=== PATIENT | female | born 1950 | race Caucasian/White ===

== ENCOUNTER 2021-08-31 07:05 | Day surgery (SDC) | payer OTHER ==
[~2021-08-31] VITALS: Ht 165.1 cm; Wt 100.7 kg
[~2021-08-31 07:05] MED LIST: ACET-1158 PO; ASPI1TAB91 PO; ATO40T PO; CETI1TAB12 PO; DOXY-332 PO; FLUT1SPR21 EACHNOSTRI; LEVO100T8 PO; METO25TA93 PO; NITR0.4S29 SL; TOLT1CAP29 PO
[2021-08-31] MEDS ORDERED: LIDOCAINE 2%HCL (LOCAL ANESTH.) INJ 20ML MDV ONE (07:25)
[2021-08-31] MEDS ORDERED: ANGIOMAX 250 MG VIAL IV ONE (07:49)
[2021-08-31] MEDS ORDERED: SODIUM CHL 0.9% 50 ML ONE (07:50)
[2021-08-31] MEDS ORDERED: MIDAZOLAM HCL 2MG/2ML 2ml VIAL (1mg/ml) ONE (07:50)
[2021-08-31] MEDS ORDERED: fentaNYL CITRATE 100 MCG/2 ML VL ONE (07:50)
[2021-08-31] MEDS ORDERED: NITROGLYCERIN 5MG/ML 10ML VIAL IV ONE (08:10)
[2021-08-31] MEDS ORDERED: CLOPIDOGREL 300 MG TAB ONE (08:49)
== END 2021-08-31 11:25 | disposition home or self-care (01) ==
LOC: CATH 07:05
PROVIDERS: ATTEND Specialist
DX: I21.4 Non-ST elevation (NSTEMI) myocardial infarction (principal); I25.10 Atherosclerotic heart disease of native coronary artery without angina pectoris; I10 Essential (primary) hypertension; E66.9 Obesity, unspecified; Z98.890 Other specified postprocedural states; Z79.899 Other long term (current) drug therapy; Z98.51 Tubal ligation status; Z88.0 Allergy status to penicillin; Z88.1 Allergy status to other antibiotic agents; Z20.822 Contact with and (suspected) exposure to COVID-19; Z68.36 Body mass index [BMI] 36.0-36.9, adult
CPT/HCPCS: 71045; 75716; C1725; C1760; C1769; C1874; C1887; C1894; C9600; J0583; J1644; J2250; J3010; J3490; J7030; U0003; 99152; 99153

== ENCOUNTER 2021-12-27 07:31 | Inpatient (IN) | payer OTHER ==
[~2021-12-27] VITALS: Ht 165.1 cm; Wt 111.2 kg
[2021-12-27] MEDS ORDERED: SODIUM CHLORIDE 0.9% 1,000 ML IV ONE (08:00)
[2021-12-27 09:15] LABS: Basophils # (auto) 0.1 10 ^3/uL (0-0.2); Basophils % (auto) 0.8 % (0.0-2.0); Eosinophils # (auto) 0.1 10 ^3/uL (0-0.8); Eosinophils % (auto) 0.8 % (0.0-7.0); Hematocrit 44.8 % (36.0-46.0); Hemoglobin 14.7 g/dL (12.2-16.2); Lymphocytes # (auto) 1.1 10 ^3/uL (0.4-5.4); Lymphocytes % (auto) 12.2 % (10.0-50.0); Mean Corpuscular Hemoglobin 27.1 pg (28.0-32.0); Mean Corpuscular Hgb Conc. 32.8 g/dL (32.0-36.0); Mean Corpuscular Volume 82.8 fL (80.0-100.0); Monocytes # (auto) 0.2 10 ^3/uL (0-1.3); Monocytes % (auto) 2.7 % (0.0-12.0); Neutrophils # (auto) 7.7 10 ^3/uL (1.6-8.6); Neutrophils % (auto) 83.5 % (37.0-80.0); Nucleated Red Blood Cells % 0.1 %; Red Blood Cells 5.41 10^6/uL (4.0-5.20); Red Cell Distribution Width 15.4 % (11.8-14.3); White Blood Cell 9.2 10^3/uL (4.4-10.8)
[2021-12-27 09:22] LABS: INR 1.02 (0.9-1.15)
[2021-12-27 09:24] LABS: Albumin 3.5 g/dL (3.4-5.0); Potassium 3.8 mmol/L (3.5-5.1)
[2021-12-27 09:37] LABS: Bilirubin, Total 0.6 mg/dL (0.2-1.0); Total Protein 7.4 g/dL (6.4-8.2)
[2021-12-27 10:24] LABS: BUN/Creatinine Ratio 14.1
[2021-12-27] MEDS ORDERED: cefTRIAXone 1GM/50ML D5W 50 ML IV ONE (12:45)
[2021-12-27 13:01] LABS: Urine Bacteria MANY /hpf (None Seen); Urine Blood Negative /uL (Negative); Urine WBC 3 /hpf (0 - 5)
[2021-12-27] MEDS ORDERED: NITROGLYCERIN 0.4 MG SL TAB SL PRN (14:00)
[2021-12-27] MEDS ORDERED: cloNIDine HCL 0.1 MG TAB PO PRN (14:00)
[2021-12-27] MEDS ORDERED: PROMETHAZINE HCL 25 MG/ML 1ML IV PRN (14:00)
[2021-12-27] MEDS ORDERED: MORPHINE SULFATE INJECTION 2 MG/ML SYRG IV PRN (14:00)
[2021-12-27] MEDS ORDERED: IOHEXOL 350 MG/ML 100ML IJ ONE (14:57)
[2021-12-27] MEDS: ACETAMINOPHEN 500 MG TAB PO PRN (16:12)
[2021-12-27] MEDS ORDERED: PATIENTS OWN MEDICATION (Atorvastatin Calcium (Lipitor) 1 TAB) PO SCH (18:00)
[2021-12-27 20:00] VITALS: BP 158/73
[2021-12-27] MEDS ORDERED: HYDROcodone-ACET 5/325MG TAB PO PRN (21:30)
[2021-12-27 22:00] VITALS: BP 158/73
[2021-12-27] MEDS: LISINOPRIL 10 MG TAB PO SCH (22:05)
[2021-12-27] MEDS: ENOXAPARIN SOD 100 MG/1 ML SYRINGE SC SCH (22:05)
[2021-12-27] MEDS: ATORVASTATIN 20 MG TAB PO SCH (22:06)
[2021-12-28] MEDS ORDERED: AMIODARONE HCL (50 MG/ ML) 3 ML VIAL IV ONE (03:05)
[2021-12-28] MEDS ORDERED: AMIODARONE 450mg/250ml AE 250 ML IV ONE (03:06)
[2021-12-28] MEDS ORDERED: SODIUM CHLORIDE 0.9% 1,000 ML IV ONE (03:15)
[2021-12-28] MEDS ORDERED: AMIODARONE HCL 150 MG in D5W 5% 100 ML IV ONE ×3 (03:15→09:30)
[2021-12-28] MEDS ORDERED: AMIODARONE 450mg/250ml AE 250 ML IV SCH ×5 (03:15→11:00)
[2021-12-28] MEDS ORDERED: METOPROLOL TARTRATE 1MG/1ML-5ML VIAL IV ONE (03:29)
[2021-12-28] MEDS: METOPROLOL TARTRATE 1MG/1ML-5ML VIAL IV PRN (03:31)
[2021-12-28 05:00] VITALS: BP_SYST 123; BP_SYST 136; BP_DIAS 51; BP_DIAS 86
[2021-12-28 05:15] VITALS: BP 129/69
[2021-12-28 05:35] LABS: Basophils # (auto) 0.1 10 ^3/uL (0-0.2); Eosinophils # (auto) 0.1 10 ^3/uL (0-0.8); Eosinophils % (auto) 1.1 % (0.0-7.0); Hematocrit 37.6 % (36.0-46.0); Hemoglobin 12.5 g/dL (12.2-16.2); Lymphocytes # (auto) 1.6 10 ^3/uL (0.4-5.4); Lymphocytes % (auto) 21.6 % (10.0-50.0); Mean Corpuscular Hgb Conc. 33.3 g/dL (32.0-36.0); Monocytes # (auto) 0.6 10 ^3/uL (0-1.3); Monocytes % (auto) 7.4 % (0.0-12.0); Neutrophils # (auto) 5.2 10 ^3/uL (1.6-8.6); Neutrophils % (auto) 68.9 % (37.0-80.0); Red Blood Cells 4.64 10^6/uL (4.0-5.20); Red Cell Distribution Width 14.6 % (11.8-14.3); White Blood Cell 7.5 10^3/uL (4.4-10.8)
[2021-12-28 05:39] LABS: INR 1.09 (0.9-1.15); Partial Thromboplastin Time 31.6 sec (23.6-33.0)
[2021-12-28 05:41] LABS: Calcium 8.2 mg/dL (8.5-10.1); Potassium 3.6 mmol/L (3.5-5.1)
[2021-12-28 05:49] LABS: BUN/Creatinine Ratio 12.1
[2021-12-28] MEDS: LEVOTHYROXINE SODIUM 100 MCG TAB PO SCH (06:55)
[2021-12-28] MEDS ORDERED: ASPirin-EC 81 mg tab PO SCH (07:00)
[2021-12-28] MEDS ORDERED: PATIENTS OWN MEDICATION (Metoprolol Succinate (Metoprolol Succinate Er) 25 MG) PO SCH (07:00)
[2021-12-28] MEDS: TOLTERODINE TARTRATE 4 MG PO SCH ×2 (07:00→08:18)
[2021-12-28 09:00] VITALS: BP 117/50
[2021-12-28] MEDS: FAMOTIDINE 20 MG TAB PO SCH (09:34)
[2021-12-28] MEDS: METOPROLOL SUCCINATE XL 50 MG TAB PO SCH (09:34)
[2021-12-28] MEDS: LISINOPRIL 10 MG TAB PO SCH (09:35)
[2021-12-28] MEDS: ENOXAPARIN SOD 100 MG/1 ML SYRINGE SC SCH (09:35)
[2021-12-28] MEDS ORDERED: DIGOXIN (250MCG/ML) 2 ML AMPULE IV ONE (09:45)
[2021-12-28] MEDS: CLOPIDOGREL BISULFATE 75 MG TAB PO SCH (10:45)
[2021-12-28 12:35] VITALS: BP 114/58
[2021-12-28] MEDS: AMIODARONE 450mg/250ml AE 250 ML IV SCH (15:45)
[2021-12-28 18:00] VITALS: BP 152/61
[2021-12-28 20:00] VITALS: BP 117/50
[2021-12-29] MEDS: ACETAMINOPHEN 500 MG TAB PO PRN (04:04)
[2021-12-29] MEDS: ATORVASTATIN 20 MG TAB PO SCH ×2 (04:05→21:25)
[2021-12-29] MEDS: ENOXAPARIN SOD 100 MG/1 ML SYRINGE SC SCH ×3 (04:06→21:25)
[2021-12-29] MEDS: LISINOPRIL 10 MG TAB PO SCH ×3 (04:06→21:25)
[2021-12-29] MEDS: AMIODARONE 450mg/250ml AE 250 ML IV SCH (06:39)
[2021-12-29] MEDS: LEVOTHYROXINE SODIUM 100 MCG TAB PO SCH (06:42)
[2021-12-29 09:00] VITALS: BP 146/68
[2021-12-29] MEDS: FAMOTIDINE 20 MG TAB PO SCH (09:16)
[2021-12-29] MEDS: METOPROLOL SUCCINATE XL 50 MG TAB PO SCH ×2 (09:16→17:16)
[2021-12-29] MEDS: CLOPIDOGREL BISULFATE 75 MG TAB PO SCH (09:16)
[2021-12-29] MEDS ORDERED: AMIODARONE HCL 200 MG TAB PO SCH (10:00)
[2021-12-29] MEDS: METOPROLOL TARTRATE 1MG/1ML-5ML VIAL IV PRN (10:20)
[2021-12-29] MEDS ORDERED: AMIODARONE HCL 150 MG in D5W 5% 100 ML IV ONE (10:30)
[2021-12-29 13:00] VITALS: BP 131/89
[2021-12-29] MEDS ORDERED: dilTIAZem 25 MG/5 ML VIAL IV ONE (13:00)
[2021-12-29 17:00] VITALS: BP 135/68
[2021-12-29] MEDS: AMIODARONE HCL 200 MG TAB PO SCH (21:25)
[2021-12-29 22:00] VITALS: BP 145/79
[2021-12-30 05:47] VITALS: BP 147/58
[2021-12-30] MEDS: LEVOTHYROXINE SODIUM 100 MCG TAB PO SCH (06:47)
[2021-12-30] MEDS: TOLTERODINE TARTRATE 4 MG PO SCH (06:48)
[2021-12-30 09:00] VITALS: BP 145/80
[2021-12-30] MEDS: CLOPIDOGREL BISULFATE 75 MG TAB PO SCH (11:51)
[2021-12-30] MEDS: AMIODARONE HCL 200 MG TAB PO SCH (11:51)
[2021-12-30] MEDS: FAMOTIDINE 20 MG TAB PO SCH (11:51)
[2021-12-30] MEDS: ENOXAPARIN SOD 100 MG/1 ML SYRINGE SC SCH (11:52)
[2021-12-30] MEDS: LISINOPRIL 10 MG TAB PO SCH (11:52)
[2021-12-30] MEDS: METOPROLOL SUCCINATE XL 50 MG TAB PO SCH (11:52)
[2021-12-30] MEDS ORDERED: APIX5TAB PO (11:53)
[2021-12-30] MEDS ORDERED: METO-6 PO (11:53)
[2021-12-30] MEDS ORDERED: CLOP75TA28 PO (11:53)
[2021-12-30] MEDS ORDERED: AMIO200T4 PO (11:56)
[2021-12-30 12:33] VITALS: BP 145/80
== END 2021-12-30 14:33 | disposition home or self-care (01) | DRG 308 ==
LOC: ER 07:31 → TELE 13:53 → TELE-WESTW 17:09
PROVIDERS: ADMIT Hospitalist; ATTEND Hospitalist
DX: I48.91 Unspecified atrial fibrillation (principal); I50.21 Acute systolic (congestive) heart failure; Z68.41 Body mass index [BMI] 40.0-44.9, adult; I11.0 Hypertensive heart disease with heart failure; E04.1 Nontoxic single thyroid nodule; E78.5 Hyperlipidemia, unspecified; I25.10 Atherosclerotic heart disease of native coronary artery without angina pectoris; Z20.822 Contact with and (suspected) exposure to COVID-19; E66.01 Morbid (severe) obesity due to excess calories; Z98.51 Tubal ligation status; I25.2 Old myocardial infarction; Z79.899 Other long term (current) drug therapy; Z82.49 Family history of ischemic heart disease and other diseases of the circulatory system; Z98.61 Coronary angioplasty status; Z88.0 Allergy status to penicillin; Z88.1 Allergy status to other antibiotic agents; Z88.8 Allergy status to other drugs, medicaments and biological substances
CPT/HCPCS: 36415; 71045; 71275; 76536; 80048; 80053; 80061; 81001; 83036; 83735; 83880; 84439; 84443; 84484; 85025; 85379; 85610; 85730; 87426; 93005; 93306; 96361; 96365; 99291; G0378; J0696; J7060

== ENCOUNTER 2024-04-21 15:33 | Emergency (ER) | payer OTHER ==
[~2024-04-21] VITALS: Ht 165.1 cm; Wt 95.4 kg
[~2024-04-21 15:33] MED LIST changes: -ACET-1158 PO; +ACET500T58 PO; +AMIO200T13 PO; +APIX5TAB PO; -ASPI1TAB91 PO; -ATO40T PO; +ATOR-507 PO; +CLOP75TA28 PO; -DOXY-332 PO; +METO-6 PO; -METO25TA93 PO
[2024-04-21 16:13] LABS: Basophils # (auto) 0.1 10 ^3/uL (0-0.2); Basophils % (auto) 0.7 % (0.0-2.0); Eosinophils # (auto) 0.2 10 ^3/uL (0-0.8); Eosinophils % (auto) 1.6 % (0.0-7.0); Hemoglobin 13.3 g/dL (12.2-16.2); Lymphocytes # (auto) 1.2 10 ^3/uL (0.4-5.4); Lymphocytes % (auto) 13.1 % (10.0-50.0); Mean Corpuscular Hemoglobin 27.3 pg (28.0-32.0); Mean Corpuscular Hgb Conc. 31.7 g/dL (32.0-36.0); Mean Corpuscular Volume 86.2 fL (80.0-100.0); Monocytes # (auto) 0.4 10 ^3/uL (0-1.3); Monocytes % (auto) 4.8 % (0.0-12.0); Neutrophils # (auto) 7.3 10 ^3/uL (1.6-8.6); Neutrophils % (auto) 79.8 % (37.0-80.0); Red Blood Cells 4.87 10^6/uL (4.0-5.20); White Blood Cell 9.2 10^3/uL (4.4-10.8)
[2024-04-21 16:28] LABS: INR 1.02 (0.9-1.15); Partial Thromboplastin Time 23.1 SEC (24.5-34.5); Prothrombin Time 10.8 sec (9.3-11.8)
[2024-04-21 16:53] LABS: Glucose 113 mg/dL (74-106)
[2024-04-21 16:54] LABS: Alkaline Phosphatase 131 U/L (46-116); Magnesium 1.8 mg/dL (1.6-2.6)
[2024-04-21 16:55] LABS: Albumin 4.4 g/dL (3.2-4.8); Aspartate Aminotransferase 20 U/L (13-40)
[2024-04-21 16:56] LABS: Bilirubin, Total 0.6 mg/dL (0.2-1.0); Potassium 4.7 mmol/L (3.5-5.1); Total Protein 6.8 g/dL (5.7-8.2)
[2024-04-21 16:57] LABS: Alanine Aminotransferase 17 U/L (7-40); Anion Gap 5 (5-15); BUN/Creatinine Ratio 16.3 (10.0-20.0); Blood Urea Nitrogen 20 mg/dL (9-23); Calcium 9.9 mg/dL (8.7-10.4); Carbon Dioxide 25 mmol/L (20-30); Chloride 106 mmol/L (98-107); Sodium 136 mmol/L (136-145)
[2024-04-21 17:15] LABS: Urine Bacteria MANY /hpf (None Seen); Urine Blood Negative /uL (Negative); Urine Clarity Turbid (Clear); Urine Color Yellow (Yellow); Urine Mucus FEW (None Seen); Urine Protein, UAD Negative (Negative); Urine Urobilinogen Normal (Negative); Urine WBC 118 /hpf (0 - 5); Urine WBC Clumps PRESENT /hpf (None Seen); Urine pH 5.5 (5.0-9.0)
[2024-04-21] MEDS ORDERED: BACDST PO (18:35)
[2024-04-21 18:55] VITALS: BP 156/72; PULSE 70; RESP 17; TEMP 98.7; O2SAT 97
== END 2024-04-21 18:56 | disposition home or self-care (01) ==
LOC: ER 15:33
DX: J18.9 Pneumonia, unspecified organism (principal); I25.119 Atherosclerotic heart disease of native coronary artery with unspecified angina pectoris; N39.0 Urinary tract infection, site not specified; R07.89 Other chest pain; I10 Essential (primary) hypertension; I48.91 Unspecified atrial fibrillation; I25.2 Old myocardial infarction; E78.5 Hyperlipidemia, unspecified; Z98.61 Coronary angioplasty status; Z98.890 Other specified postprocedural states; Z88.8 Allergy status to other drugs, medicaments and biological substances; Z79.899 Other long term (current) drug therapy
CPT/HCPCS: 36415; 71045; 80053; 81001; 83735; 83880; 84484; 85025; 85610; 85730; 93005

== ENCOUNTER 2024-09-10 12:38 | Emergency (ER) | payer OTHER ==
[~2024-09-10] VITALS: Ht 165.1 cm; Wt 95.8 kg
[~2024-09-10 12:38] MED LIST changes: +BACDST PO
[2024-09-10 13:44] VITALS: BP 157/75; PULSE 87; RESP 16; TEMP 99.1; O2SAT 99
[2024-09-10] MEDS: methylPREDNISolone SOD SUCC 125 MG/2 ML VL IM ONE (13:47)
[2024-09-10] MEDS: HYDROcodone-ACET 5/325MG TAB PO ONE (13:47)
[2024-09-10 13:48] LABS: Basophils # (auto) 0.1 10 ^3/uL (0-0.2); Basophils % (auto) 0.8 % (0.0-2.0); Eosinophils # (auto) 0.2 10 ^3/uL (0-0.8); Eosinophils % (auto) 2.6 % (0.0-7.0); Hematocrit 43.6 % (36.0-46.0); Hemoglobin 14.3 g/dL (12.2-16.2); Lymphocytes # (auto) 1.3 10 ^3/uL (0.4-5.4); Lymphocytes % (auto) 18.3 % (10.0-50.0); Mean Corpuscular Hemoglobin 27.4 pg (28.0-32.0); Mean Corpuscular Hgb Conc. 32.8 g/dL (32.0-36.0); Mean Corpuscular Volume 83.3 fL (80.0-100.0); Monocytes # (auto) 0.4 10 ^3/uL (0-1.3); Monocytes % (auto) 5.9 % (0.0-12.0); Neutrophils # (auto) 5.1 10 ^3/uL (1.6-8.6); Neutrophils % (auto) 72.4 % (37.0-80.0); Nucleated Red Blood Cells % 0.1 %; Platelet Count (auto) 281 10^3/uL (140-450); Red Blood Cells 5.23 10^6/uL (4.0-5.20); Red Cell Distribution Width 15.4 % (11.8-14.3); White Blood Cell 7.1 10^3/uL (4.4-10.8)
[2024-09-10 14:09] LABS: Alanine Aminotransferase 11 U/L (7-40); Albumin 4.6 g/dL (3.2-4.8); Alkaline Phosphatase 136 U/L (46-116); Anion Gap 8 (5-15); Aspartate Aminotransferase 16 U/L (13-40); BUN/Creatinine Ratio 13.4 (10.0-20.0); Bilirubin, Total 0.3 mg/dL (0.2-1.0); Blood Urea Nitrogen 15 mg/dL (9-23); Calcium 10.2 mg/dL (8.7-10.4); Carbon Dioxide 26 mmol/L (20-31); Chloride 104 mmol/L (98-107); Glucose 82 mg/dL (74-106); Potassium 4.3 mmol/L (3.5-5.1); Sodium 138 mmol/L (136-145); Total Protein 7.3 g/dL (5.7-8.2)
[2024-09-10 16:05] LABS: Urine Bacteria FEW /hpf (None Seen); Urine Blood Negative /uL (Negative); Urine Clarity Turbid (Clear); Urine Color Light-Yellow (Yellow); Urine Protein, UAD Negative (Negative); Urine Specific Gravity 1.012 (1.001-1.035); Urine Urobilinogen Normal (Negative); Urine WBC 18 /hpf (0 - 5)
[2024-09-10] MEDS ORDERED: BACDST PO (16:34)
[2024-09-10] MEDS ORDERED: NITR-87 PO (16:39)
== END 2024-09-10 16:42 | disposition home or self-care (01) ==
LOC: ER 12:44
DX: N39.0 Urinary tract infection, site not specified (principal); I48.91 Unspecified atrial fibrillation; I25.10 Atherosclerotic heart disease of native coronary artery without angina pectoris; I10 Essential (primary) hypertension; E78.5 Hyperlipidemia, unspecified; I21.9 Acute myocardial infarction, unspecified; Z98.51 Tubal ligation status; Z79.01 Long term (current) use of anticoagulants; Z79.899 Other long term (current) drug therapy; Z88.0 Allergy status to penicillin; Z88.1 Allergy status to other antibiotic agents; Z88.8 Allergy status to other drugs, medicaments and biological substances
CPT/HCPCS: 36415; 72131; 80053; 81001; 85025; 96372; 99285; J2919

== ENCOUNTER 2024-12-01 05:08 | Emergency (ER) | payer OTHER ==
[~2024-12-01] VITALS: Ht 165.1 cm; Wt 101.4 kg
[~2024-12-01 05:08] MED LIST changes: +NITR-87 PO
--- NOTE | 2024-12-01 07:07 | ED.PDOC ---
General HPI Comments 74 y.o female with PMHx of HTN, MT, AFIB, presents to the ED for a chief complaint of right sided back pain radiating to her flank and RLQ associated with dysuria, cloudy and strong odor urine that started 1-2 days ago. Patient reports she was seen at [facility] urgent care yesterday, was diagnosed with a UTI and given an oral prescribed antibiotic. Patient reports symptoms have worsened and was advised to come in for further evaluation. Patient denies any hematuria, nausea, vomiting, fever or chills. She is on Plavix and on 81mg ASA. Chief Complaint: Flank Pain Time Seen by MD: 06:37 Primary Care Provider: GERSON Reviewed notes: Nurses Notes, Medications, Allergies Allergies: Coded Allergies: Amitriptyline (Verified Allergy, Intermediate, SKIN BLISTERING, 08/28/21) Statins (Verified Allergy, Intermediate, MUSCLE CRAMPS, 08/28/21) Cephalexin (Verified Allergy, Mild, ITCHY THROAT, 08/28/21) Penicillins (Verified Allergy, Mild, RASH, 08/28/21) Home Meds Active Scripts Nitrofurantoin Monohydrate Mac (Macrobid) 100 Mg Cap, 100 MG PO BID for 7 Days, #14 CAP Prov:TAMERA ROSE MD 12/01/24 Nitrofurantoin Monohydrate Mac (Macrobid) 100 Mg Cap, 100 MG PO BID for 7 Days, #14 CAP 0 Refills Prov:HAM RG NP 09/10/24 Sulfamethoxazole W/Trimethopri (Bactrim Ds Tablet) 1 Tab Tb, 1 TAB PO BID for 10 Days, #20 TAB Prov:DEUCE CARNES MD 04/21/24 Amiodarone HCl (Amiodarone HCl) 200 Mg Tab, 200 MG PO DAILY@BREAKFAST, #60 TAB take 1 tablet twice a day for next 7 days then take 1 tablet once a day Prov:EDMUNDO REYES MD 12/30/21 Apixaban Base (ELIQUIS) 5 Mg Tab, 5 MG PO BID, #60 TAB 1 Refill Prov:EDMUNDO REYES MD 12/30/21 Metoprolol Succinate (Toprol Xl) 50 Mg Tab, 50 MG PO DAILY, #90 TAB Prov:EDMUNDO REYES MD 12/30/21 Clopidogrel Bisulfate (Plavix) 75 Mg Tab, 75 MG PO DAILY, #90 TAB Prov:EDMUNDO REYES MD 12/30/21 Reported Medications Fluticasone Propionate (Nasal) (Allergy Nasal [place] 24 Ho) 50 Mcg/Act Spr, 2 SPR EACHNOSTRI DAILYP PRN for ALLERGIES 08/28/21 Cetirizine HCl (Zyrtec Allergy Childrens) 10 Mg Tab, 10 MG PO DIRECTED PRN for SEASONAL ALLERGIES 08/28/21 Levothyroxine Sodium (Levothyroxine Sodium) 100 Mcg Tab, 100 MCG PO QAM for HYPOTHYROIDISM 08/28/21 Acetaminophen (Acetaminophen) 500 Mg Tab, 1-2 TAB PO DIRECTED PRN for FOR HEADACHE 08/28/21 Nitroglycerin (NTROSTAT SUBLINGUAL) 0.4 Mg Sl, 0.4 MG SL PRN PRN for FOR CHEST PAIN *MAY REPEAT EVERY 5 MINUTES X 3 TOTAL IF NO RELIEF, INITIATE ANALGESIC THERAPY. NOTIFY PHYSICIAN *Do not crush. 08/28/21 Atorvastatin Calcium (Lipitor) 40 Mg Tab, 1 TAB PO QPM for HIGH CHOLESTEROL 08/28/21 Tolterodine Tartrate (Tolterodine Tartrate ER) 4 Mg Cap, 4 MG PO QAM for BLADDER CONTROL 08/28/21 Information Source: Patient Mode of Arrival: Ambulatory Severity: Moderate Timing: Days (1-2) Duration: Since onset Onset: Spontaneous Symptoms: Dysuria History of: UTI Location: (R) Flank associated signs and symptoms: Flank Pain, Back Pain, Dysuria Past Medical History PAST MEDICAL HISTORY: AFIB, Angina, CAD, High Lipids, HTN, MT, Thyroid Surgical History: BTL, PTCA, Tubal Ligation HOT ROLLER History: Denies all HOT ROLLER Hx Family History Family History: Reviewed,noncontributory to illness Social History Smoker: Non-Smoker Alcohol: Denies ETOH Use Drugs: Denies Drug Use Lives In: Home Constitutional: denies: chills, diaphoresis, fatigue, fever, malaise, sweats, weakness, others EENTM: denies: blurred vision, double vision, ear bleeding, ear discharge, ear drainage, ear pain, ear ringing, eye pain, eye redness, hearing loss, mouth pain, mouth swelling, nasal discharge, nose bleeding, nose congestion, nose pain, photophobia, tearing, throat pain, throat swelling, voice changes, others Respiratory: denies: cough, hemoptysis, orthopnea, SOB at rest, shortness of breath, SOB with excertion, stridor, wheezing, others Cardiovascular: denies: chest pain, dizzy spells, diaphoresis, Dyspnea on exertion, edema, irregular heart beat, left arm pain, lightheadedness, pal pitations, PND, syncope, others Gastrointestinal: denies: abdomen distended, abdominal pain, blood streaked bowels, constipated, diarrhea, dysphagia, difficulty swallowing, hematemesis, melena, nausea, poor appetite, poor fluid intake, rectal bleeding, rectal pain, vomiting, others Genitourinary: reports: burning, dysuria, flank pain; denies: abnormal vagina bleeding, dyspareunia, frequency, hematuria, incontinence, pain, , vagina discharge, urgency, others Neurological: denies: dizziness, fainting, headache, left sided numbness, left sided weakness, numbness, paresthesia, pre-existing deficit, right sided numbness, right sided weakness, seizure, speech problems, tingling, tremors, weakness, others Musculoskeletal: reports: back pain; denies: gout, joint pain, joint swelling, muscle pain, muscle stiffness, neck pain, others Integumetry: denies: bruises, change in color, change in hair/nails, dryness, laceration, lesions, lumps, rash, wounds, others Allergic/Immunocompromised: denies: Difficulty Healing, Frequent Infections, Hives, Itching, others Hematologic/Lymphatic: denies: anemia, blood clots, easy bleeding, easy bruising, swollen glands, others Endocrine: denies: excessive hunger, excessive sweating, excessive thirst, excessive urination, flushing, intolerance to cold, intolerance to heat, unexplained weight gain, unexplained weight loss, others Psychiatric: denies: anxiety, bipolar disorder, depression, hopeless, panic disorder, schizophrenia, sleepless, suicidal, others All Other Systems: Reviewed and Negative Physical Exam General Appearance: Moderate Distress HEENT: Normal ENT Inspection, Pharynx Normal, TMs Normal Neck: Full Range of Motion, Non-Tender, Normal, Normal Inspection Respiratory: Chest Non-Tender, Lungs Clear, No Accessory Muscle Use, No Respiratory Distress, Normal Breath Sounds Cardiovascular: Irregular, No Edema, No JVD, No Murmur, No Gallop, Normal Peripheral Pulses Breast Exam: Deferred Gastrointestinal: No Organomegaly, Non Tender, No Pulsatile Mass, Normal Bowel Sounds, Soft Genitalia: Deferred Pelvic: Deferred Rectal: Deferred Extremities: No calf tenderness, Normal capillary refill, Normal inspection, Normal range of motion, Non-tender, No pedal edema Musculoskeletal : Apperance: Normal Neurologic: Alert, 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 Was a procedure done?: No Differential Diagnosis Kidney stone (Female): Musculoskeletal pain, Ovarian torsion, Pancreatitis, Pyelonephritis Urinary Problem (Female): Pyelonephritis, Urolithiasis, UTI, Vaginitis X-Ray, Labs, Meds, VS Vital Signs Date Time Temp Pulse Resp B/P (MAP) Pulse Ox O2 Delivery O2 Flow Rate FiO2 12/01/24 08:48 86 18 188/77 (114) 96 12/01/24 08:43 188/77 12/01/24 07:39 176/89 12/01/24 07:33 86 18 99 Room Air 12/01/24 07:33 97.5 86 18 176/89 (118) 99 97.5 12/01/24 05:32 100 12/01/24 05:20 98.9 94 16 197/93 (127) 96 Lab Test 12/01/24 07:37 12/01/24 05:26 Range/Units White Blood Count 8.6 4.4-10.8 10^3/uL Red Blood Count 5.27 H 4.0-5.20 10^6/uL Hemoglobin 14.5 12.2-16.2 g/dL Hematocrit 43.7 36.0-46.0 % Mean Corpuscular Volume 83.0 80.0-100.0 fL Mean Corpuscular Hemoglobin 27.4 L 28.0-32.0 pg Mean Corpuscular Hemoglobin Concent 33.1 32.0-36.0 g/dL Red Cell Distribution Width 16.4 H 11.8-14.3 % Platelet Count 276 140-450 10^3/uL Mean Platelet Volume 8.3 6.9-10.8 fL Neutrophils (%) (Auto) 77.0 37.0-80.0 % Lymphocytes (%) (Auto) 15.7 10.0-50.0 % Monocytes (%) (Auto) 5.0 0.0-12.0 % Eosinophils (%) (Auto) 1.4 0.0-7.0 % Basophils (%) (Auto) 0.9 0.0-2.0 % Neutrophils # (Auto) 6.6 1.6-8.6 10 ^3/uL Lymphocytes # (Auto) 1.3 0.4-5.4 10 ^3/uL Monocytes # (Auto) 0.4 0-1.3 10 ^3/uL Eosinophils # (Auto) 0.1 0-0.8 10 ^3/uL Basophils # (Auto) 0.1 0-0.2 10 ^3/uL Nucleated Red Blood Cells 0.1 % Sodium Level 136 136-145 mmol/L Potassium Level 4.8 3.5-5.1 mmol/L Chloride Level 102 98-107 mmol/L Carbon Dioxide Level 26 20-31 mmol/L Anion Gap 8 5-15 Blood Urea Nitrogen 16 9-23 mg/dL Creatinine 1.18 H 0.550-1.02 mg/dL Glomerular Filtration Rate Calc 48 >90 mL/min BUN/Creatinine Ratio 13.6 10.0-20.0 Serum Glucose 120 H 74-106 mg/dL Calcium Level 10.3 8.7-10.4 mg/dL B-Type Natriuretic Peptide 280.36 0-100 pg/mL Urine Color Light-yellow Yellow Urine Clarity Turbid H Clear Urine pH 5.5 5.0-9.0 Urine Specific [place] 1.010 1.001-1.035 Urine Protein Negative Negative Urine Ketones Negative Negative Urine Blood Negative Negative /uL Urine Nitrite Negative Negative Urine Bilirubin Negative Negative Urine Urobilinogen Normal Negative mg/dL Urine Leukocyte Esterase 2+ Negative /uL Urine RBC 2 0 - 4 /hpf Urine WBC 36 0 - 5 /hpf Urine Squamous Epithelial Cells Few <5 /hpf Urine Bacteria Mod H None Seen /hpf Urine Glucose Normal Normal mg/dL Current Medications Medications (Trade) Dose Ordered Sig/Tresa Route Start Time Stop Time Status Last Admin Clonidine HCl (Catapres Tablet) 0.2 mg ONCE ONCE PO 12/01/24 07:30 1/4/25 07:31 DC 12/01/24 07:39 Acetaminophen (Tylenol Tablet Or Capsule) 500 mg ONCE ONCE PO 12/01/24 09:00 12/01/24 09:01 DC 12/01/24 08:52 Patient alert. She has oversized. Complaining of flank pain. Blood pressure elevated. Saturation pristine on room air. Respiratory rate within normal limits. She was seen here for the same condition few days ago. Reviewed her previous visit. Explained to the patient. Continue cardiac monitoring. Was given clonidine. UA shows UTI. Was given prescription of Macrobid antibiotic. Spoke with choice physician. No sign of any sepsis. No leg swelling. No calf tenderness. No shortness a breath. No chest pain. Explained to the patient. Was told to follow up with her primary care physician. Was told to come back if there is any problem. Time of 1ST Reevaluation: 07:06 Reevaluation 1ST: Unchanged Time of 2ND Reevaluation: 10:52 Reevaluation 2ND: Improved Patient Education/Counseling: Diagnosis, Treatment, Prognosis Family Education/Counseling: No Family Present Additional Information The following tests were ordered, and results were reviewed by me: BMP, BNP, CBC, EKG x1, and UA Additional Information was gathered from interviewing the following independent historians: None I reviewed and agreed with the following test results read by other providers: CT ABD I discussed treatment and results with medical personnel Departure 1 Departure Time of Disposition: 07:28 Impression: Primary Impression: Atrial fibrillation with RVR Additional Impressions: Hypertensive urgency UTI (urinary tract infection) Qualified Codes: N30.01 - Acute cystitis with hematuria Disposition: HOME / SELF CARE / HOMELESS Condition: Good e-Prescriptions Nitrofurantoin Monohydrate Mac (Macrobid) 100 Mg Cap 100 MG PO BID for 7 Days, #14 CAP Prov: TAMERA ROSE MD 12/01/24 Discharged With: Self Critical Care Note Critical Care Time?: Yes (45 min-critical care time only) Stability Stability form required: No I personally scribed for TAMERA ROSE MD ([email or web address]) on 12/01/24 at 07:07. Electronically submitted by Sonja Puga ([email or web address]). TAMERA ROSE MD Dec 01, 2024 07:07
[2024-12-01] MEDS: cloNIDine HCL 0.1 MG TAB PO ONE (07:39)
[2024-12-01 07:55] LABS: Basophils # (auto) 0.1 10 ^3/uL (0-0.2); Basophils % (auto) 0.9 % (0.0-2.0); Eosinophils # (auto) 0.1 10 ^3/uL (0-0.8); Eosinophils % (auto) 1.4 % (0.0-7.0); Hematocrit 43.7 % (36.0-46.0); Hemoglobin 14.5 g/dL (12.2-16.2); Lymphocytes # (auto) 1.3 10 ^3/uL (0.4-5.4); Lymphocytes % (auto) 15.7 % (10.0-50.0); Mean Corpuscular Hemoglobin 27.4 pg (28.0-32.0); Mean Corpuscular Hgb Conc. 33.1 g/dL (32.0-36.0); Monocytes # (auto) 0.4 10 ^3/uL (0-1.3); Neutrophils # (auto) 6.6 10 ^3/uL (1.6-8.6); Nucleated Red Blood Cells % 0.1 %; Platelet Count (auto) 276 10^3/uL (140-450); Red Blood Cells 5.27 10^6/uL (4.0-5.20); Red Cell Distribution Width 16.4 % (11.8-14.3); White Blood Cell 8.6 10^3/uL (4.4-10.8)
[2024-12-01 08:00] LABS: Chloride 102 mmol/L (98-107); Potassium 4.8 mmol/L (3.5-5.1)
[2024-12-01 08:01] LABS: Anion Gap 8 (5-15); Carbon Dioxide 26 mmol/L (20-31)
[2024-12-01 08:02] LABS: Calcium 10.3 mg/dL (8.7-10.4)
[2024-12-01 08:06] LABS: BUN/Creatinine Ratio 13.6 (10.0-20.0); Blood Urea Nitrogen 16 mg/dL (9-23)
[2024-12-01 08:08] LABS: Urine Bacteria MOD /hpf (None Seen); Urine Blood Negative /uL (Negative); Urine Clarity Turbid (Clear); Urine Color Light-Yellow (Yellow); Urine Protein, UAD Negative (Negative); Urine Squamous Epithelial Cell FEW /hpf (<5); Urine Urobilinogen Normal (Negative); Urine WBC 36 /hpf (0 - 5); Urine pH 5.5 (5.0-9.0)
[2024-12-01 08:16] LABS: Glucose 120 mg/dL (74-106); Sodium 136 mmol/L (136-145)
[2024-12-01] MEDS: ACETAMINOPHEN 500 MG TAB or CAP PO ONE (08:52)
[2024-12-01] MEDS ORDERED: NITR-87 PO (10:51)
[2024-12-01 10:59] VITALS: BP 113/60; PULSE 72; RESP 18; TEMP 98; O2SAT 98
--- NOTE | 2024-12-02 15:46 | DVHINCON2 ---
Date Seen: Dec 01, 2024 Referring Physician ER physician. Reason for Consultation Right-sided back pain and uncontrolled hypertension. History of Present Illness 74-year-old female with a known history of chronic AFib currently on anticoagulation, hypothyroidism, hypertension, dyslipidemia, coronary artery disease initially admitted to the hospital with right-sided back pain found to have UTI. Patient denies any fevers chills. Patient denies any chest pain shortness of breath. Denied any recent sick contacts. Past Medical History Hypertension Dyslipidemia Hypothyroidism Chronic AFib Coronary artery disease Hypothyroidism Past Surgical History Bilateral tubal ligation. Family History: Heart attack G8 MOTHER, Onset:60 years & older G8 BROTHER Allergies: Coded Allergies: Amitriptyline (Verified Allergy, Intermediate, SKIN BLISTERING, 08/28/21) Statins (Verified Allergy, Intermediate, MUSCLE CRAMPS, 08/28/21) Cephalexin (Verified Allergy, Mild, ITCHY THROAT, 08/28/21) Penicillins (Verified Allergy, Mild, RASH, 08/28/21) Home Meds Active Scripts Nitrofurantoin Monohydrate Mac (Macrobid) 100 Mg Cap, 100 MG PO BID for 7 Days, #14 CAP Prov:TAMERA ROSE MD 12/01/24 Nitrofurantoin Monohydrate Mac (Macrobid) 100 Mg Cap, 100 MG PO BID for 7 Days, #14 CAP 0 Refills Prov:HAM RG NP 09/10/24 Sulfamethoxazole W/Trimethopri (Bactrim Ds Tablet) 1 Tab Tb, 1 TAB PO BID for 10 Days, #20 TAB Prov:DEUCE CARNES MD 04/21/24 Amiodarone HCl (Amiodarone HCl) 200 Mg Tab, 200 MG PO DAILY@BREAKFAST, #60 TAB take 1 tablet twice a day for next 7 days then take 1 tablet once a day Prov:EDMUNDO REYES MD 12/30/21 Apixaban Base (ELIQUIS) 5 Mg Tab, 5 MG PO BID, #60 TAB 1 Refill Prov:EDMUNDO REYES MD 12/30/21 Metoprolol Succinate (Toprol Xl) 50 Mg Tab, 50 MG PO DAILY, #90 TAB Prov:EDMUNDO REYES MD 12/30/21 Clopidogrel Bisulfate (Plavix) 75 Mg Tab, 75 MG PO DAILY, #90 TAB Prov:EDMUNDO REYES MD 12/30/21 Reported Medications Fluticasone Propionate (Nasal) (Allergy Nasal [place] 24 Ho) 50 Mcg/Act Spr, 2 SPR EACHNOSTRI DAILYP PRN for ALLERGIES 08/28/21 Cetirizine HCl (Zyrtec Allergy Childrens) 10 Mg Tab, 10 MG PO DIRECTED PRN for SEASONAL ALLERGIES 08/28/21 Levothyroxine Sodium (Levothyroxine Sodium) 100 Mcg Tab, 100 MCG PO QAM for HYPOTHYROIDISM 08/28/21 Acetaminophen (Acetaminophen) 500 Mg Tab, 1-2 TAB PO DIRECTED PRN for FOR HEADACHE 08/28/21 Nitroglycerin (NTROSTAT SUBLINGUAL) 0.4 Mg Sl, 0.4 MG SL PRN PRN for FOR CHEST PAIN *MAY REPEAT EVERY 5 MINUTES X 3 TOTAL IF NO RELIEF, INITIATE ANALGESIC THERAPY. NOTIFY PHYSICIAN *Do not crush. 08/28/21 Atorvastatin Calcium (Lipitor) 40 Mg Tab, 1 TAB PO QPM for HIGH CHOLESTEROL 08/28/21 Tolterodine Tartrate (Tolterodine Tartrate ER) 4 Mg Cap, 4 MG PO QAM for BLADDER CONTROL 08/28/21 Vital Signs Vital Signs Date Time Temp Pulse Resp B/P (MAP) Pulse Ox O2 Delivery O2 Flow Rate FiO2 12/01/24 10:59 98.0 72 18 113/60 (77) 98 98.0 12/01/24 07:33 Room Air Labs/Diagnostic Data Labs Test 12/01/24 07:37 12/01/24 05:26 Range/Units White Blood Count 8.6 4.4-10.8 10^3/uL Red Blood Count 5.27 H 4.0-5.20 10^6/uL Hemoglobin 14.5 12.2-16.2 g/dL Hematocrit 43.7 36.0-46.0 % Mean Corpuscular Volume 83.0 80.0-100.0 fL Mean Corpuscular Hemoglobin 27.4 L 28.0-32.0 pg Mean Corpuscular Hemoglobin Concent 33.1 32.0-36.0 g/dL Red Cell Distribution Width 16.4 H 11.8-14.3 % Platelet Count 276 140-450 10^3/uL Mean Platelet Volume 8.3 6.9-10.8 fL Neutrophils (%) (Auto) 77.0 37.0-80.0 % Lymphocytes (%) (Auto) 15.7 10.0-50.0 % Monocytes (%) (Auto) 5.0 0.0-12.0 % Eosinophils (%) (Auto) 1.4 0.0-7.0 % Basophils (%) (Auto) 0.9 0.0-2.0 % Neutrophils # (Auto) 6.6 1.6-8.6 10 ^3/uL Lymphocytes # (Auto) 1.3 0.4-5.4 10 ^3/uL Monocytes # (Auto) 0.4 0-1.3 10 ^3/uL Eosinophils # (Auto) 0.1 0-0.8 10 ^3/uL Basophils # (Auto) 0.1 0-0.2 10 ^3/uL Nucleated Red Blood Cells 0.1 % Sodium Level 136 136-145 mmol/L Potassium Level 4.8 3.5-5.1 mmol/L Chloride Level 102 98-107 mmol/L Carbon Dioxide Level 26 20-31 mmol/L Anion Gap 8 5-15 Blood Urea Nitrogen 16 9-23 mg/dL Creatinine 1.18 H 0.550-1.02 mg/dL Glomerular Filtration Rate Calc 48 >90 mL/min BUN/Creatinine Ratio 13.6 10.0-20.0 Serum Glucose 120 H 74-106 mg/dL Calcium Level 10.3 8.7-10.4 mg/dL B-Type Natriuretic Peptide 280.36 0-100 pg/mL Urine Color Light-yellow Yellow Urine Clarity Turbid H Clear Urine pH 5.5 5.0-9.0 Urine Specific [place] 1.010 1.001-1.035 Urine Protein Negative Negative Urine Ketones Negative Negative Urine Blood Negative Negative /uL Urine Nitrite Negative Negative Urine Bilirubin Negative Negative Urine Urobilinogen Normal Negative mg/dL Urine Leukocyte Esterase 2+ Negative /uL Urine RBC 2 0 - 4 /hpf Urine WBC 36 0 - 5 /hpf Urine Squamous Epithelial Cells Few <5 /hpf Urine Bacteria Mod H None Seen /hpf Urine Glucose Normal Normal mg/dL Assessment 74-year-old female with a known history of chronic AFib, hypertension, dyslipidemia, hypothyroidism, coronary artery disease status post PCI who initially presented to hospital with isolated back pain found to have 1. Hypertension 2. Chronic AFib 3. UTI 4. Hypothyroidism 5. Known coronary artery disease status post PCI -p.o. antibiotics, patient can be discharged with close follow up as an outpatient with the PCP and return to ER if there is any concern. Problems(with codes): (1) CAD S/P percutaneous coronary angioplasty (2) UTI (urinary tract infection) (3) Uncontrolled hypertension (4) History of atrial fibrillation Plan discussed with: Other Date of Service: Dec 01, 2024 Billing Provider: RIN DALEY MD Common Visit Codes: NOT BILLABLE RIN DALEY MD Dec 02, 2024 15:46
--- NOTE | 2024-12-05 14:30 | ECG ---
[facility] Test Date: 2024-12-01 Test Time: 05:32:13 Pat Name: LASHONDA WEN Department: ER Room: Gender: F Sales Executive: : 1950 Requested By: EMERGENCY EMERGENCY Order Number: [id number] Reading MD: Rich Jacome Measurements Intervals [place] Rate: 100 P: 88 NE: 149 QRS: 95 QRSD: 83 T: 60 QT: 336 QTc: 434 Interpretive Statements Sinus tachycardia Right axis deviation Electronically Signed On 12-06-2024 9:43:54 PST by Rich Jacome Please click the below link to view image of tracing.
== END 2024-12-01 11:10 | disposition home or self-care (01) ==
LOC: ER 05:08
DX: I48.20 Chronic atrial fibrillation, unspecified (principal); I16.0 Hypertensive urgency; I10 Essential (primary) hypertension; N39.0 Urinary tract infection, site not specified; E03.9 Hypothyroidism, unspecified; E78.5 Hyperlipidemia, unspecified; I25.10 Atherosclerotic heart disease of native coronary artery without angina pectoris; Z79.899 Other long term (current) drug therapy; Z87.440 Personal history of urinary (tract) infections; Z98.51 Tubal ligation status; Z88.0 Allergy status to penicillin; Z88.1 Allergy status to other antibiotic agents; Z88.8 Allergy status to other drugs, medicaments and biological substances; Z98.890 Other specified postprocedural states
CPT/HCPCS: 36415; 80048; 81001; 83880; 85025; 93005